=== PATIENT | female | born 1965 | race Caucasian/White ===

== ENCOUNTER → 2016-08-05 | Outpatient (CLI) | payer OTHER ==
[~2016-08-05] MED LIST: ALLEGRA30 MG PO; ASCORBIC ACID100 MG PO; Advair HFA 230/21; BRINTELLIX10 MG PO; BUSPAR15 MG PO; Benadryl PO; CALCIUM 500 MG1 EACH PO; CORTEF5 M1 PO; DULERA 200 MCG/13 GM; DULERA 200 MCG/13 GM IH; EFFEXOR XR150 MG PO; EFFEXOR XR75 MG PO; EFFEXOR25 MG PO; FLEXERIL10 MG PO; FLONASE16 G1 BOTH NARES; FLONASE16 G1 NS; HYOMAX-DT0.375 MG PO; LEVBID0.375 MG PO; LEVO-T50 MCG PO; LYRICA75 MG PO; MORPHINE SULFAT15 M1 PO; NEURONTIN100 MG PO; OMEPRAZOLE40 M1 PO; OXYCODONE-APAP1 EAC6 PO; PERCOCET 5/31 TABLET PO; PERCOCET 7.51 TABLE1 PO; PROVENTIL,2.5 MG/0.5 IH; PROVENTIL,200 INHALA IH; ROBINUL FORTE2 MG PO; STOMACH MEDICINE; SYMBICORT60 INHALAT IH; TRAZODONE HCL100 MG PO; TRAZODONE HCL150 MG PO; VITAMIN B-12250 MC2 PO; VITAMIN D315 ML PO; Valium PO; ZANTAC300 MG PO; ZYRTEC10 M2 PO; predniSONE PO
== END | disposition home or self-care (01) ==
LOC: NUC 10:47
DX: K82.8 Other specified diseases of gallbladder (principal); R14.3 Flatulence; R11.0 Nausea; R10.811 Right upper quadrant abdominal tenderness
CPT/HCPCS: 78227; A9537; J2270

== ENCOUNTER 2016-08-12 07:11 | Emergency (ER) | payer OTHER ==
[~2016-08-12] VITALS: Ht 154.9 cm; Wt 79.2 kg
[~2016-08-12 07:11] MED LIST changes: -ASCORBIC ACID100 MG PO; -BRINTELLIX10 MG PO; -CORTEF5 M1 PO; -LEVBID0.375 MG PO; -LEVO-T50 MCG PO; -OMEPRAZOLE40 M1 PO; -ROBINUL FORTE2 MG PO; -VITAMIN B-12250 MC2 PO; -VITAMIN D315 ML PO
[2016-08-12 07:53] LABS: ADD MIUA? YES; BILIRUBIN NEGATIVE; BLOOD SMALL; COLOR STRAW ((YELLOW)); GLUCOSE (STRIP) NEGATIVE; KETONES NEGATIVE; LEUKOCYTES SMALL; NITRITE NEGATIVE; PROTEIN (STRIP) NEGATIVE; SPECIFIC GRAVITY 1.003 (1.000-1.030); UROBILINOGEN 0.2 MG/DL (0.2-1.0)
[2016-08-12 07:55] LABS: EOSINOPHIL (%) 0.5 % (0-5); IMMATURE GRANULOCYTE (%) 0.3 % (0.0-0.7); INSTRUMENT ABS NEUTROPHIL CT 5.8 K/uL; LYMPHOCYTE COUNT 1.6 K/uL (1.0-2.8); MCHC 32.2 G/DL (30.0-36.0); MCV 90.1 FL (83-99); MEAN PLAT.VOLUME 10.1 uM^3 (9.5-12.4); MONOCYTE (%) 3.8 % (3-12); MONOCYTE COUNT 0.3 K/uL (0-0.8); NEUTROPHIL (%) 74.3 % (45-76); NEUTROPHIL COUNT 5.8 K/uL (1.8-6.4); PLATELET COUNT 259 K/uL (156-360); RBC DIS.WIDTH-CV 13.2 % (11.8-14.6); RBC DIS.WIDTH-SD 43.2 % (39-53); RED BLOOD COUNT 4.55 M/uL (3.80-5.20); WHITE BLOOD COUNT 7.9 K/uL (4.1-10.2)
[2016-08-12 08:04] LABS: BACTERIA RARE /HPF; EPITHELIAL CELLS RARE /HPF; MUCUS NONE SEEN /LPF; RED BLOOD CELLS 0-5 /HPF (0-5); WHITE BLOOD CELLS 0-5 /HPF (0-5)
[2016-08-12 08:06] LABS: CHLORIDE 107 mEq/L (99-109); POTASSIUM 3.7 mEq/L (3.7-5.4); SODIUM 140 mEq/L (136-147)
[2016-08-12 08:08] LABS: GLUCOSE 109 mg/dL (70-99)
[2016-08-12 08:10] LABS: ANION GAP 9 MEQ/L (2-14); TOTAL BILIRUBIN 0.3 mg/dL (0.0-1.0)
[2016-08-12 08:12] LABS: ALKALINE PHOSPHATASE 90 IU/L (3-129); GFR ESTIMATE (CALCULATED) > 59 mL/min/
[2016-08-12 08:13] LABS: UREA NITROGEN (BUN) 9 mg/dL (9-23)
[2016-08-12 08:16] LABS: LIPASE 24 U/L (1.0-51.0)
[2016-08-12] MEDS ORDERED: LEVBID0.375 MG PO (08:27)
[2016-08-12] MEDS ORDERED: CORTEF5 M1 PO (08:27)
[2016-08-12] MEDS ORDERED: LEVO-T50 MCG PO (08:28)
[2016-08-12] MEDS ORDERED: BRINTELLIX10 MG PO (08:28)
[2016-08-12] MEDS ORDERED: VITAMIN B-12250 MC2 PO (08:29)
[2016-08-12] MEDS ORDERED: ASCORBIC ACID100 MG PO (08:29)
[2016-08-12] MEDS ORDERED: ROBINUL FORTE2 MG PO (08:30)
[2016-08-12] MEDS ORDERED: VITAMIN D315 ML PO (08:30)
[2016-08-12] MEDS ORDERED: OMEPRAZOLE40 M1 PO (08:31)
[2016-08-12] MEDS ORDERED: DULERA 200 MCG/13 GM IH (08:31)
[2016-08-12] MEDS ORDERED: FLONASE16 G1 BOTH NARES (08:31)
[2016-08-12 09:52] VITALS: BP 132/94
== END 2016-08-12 09:53 | disposition home or self-care (01) ==
LOC: EME 07:11
PROVIDERS: Emergency Medicine
DX: R10.11 Right upper quadrant pain (principal); K21.9 Gastro-esophageal reflux disease without esophagitis; J45.909 Unspecified asthma, uncomplicated
CPT/HCPCS: 74176; 80053; 81003; 83690; 85025; 99281; 99285; J1885; J7030

== ENCOUNTER 2016-09-17 06:57 | Day surgery (SDC) | payer OTHER ==
[~2016-09-17] VITALS: Ht 154.9 cm; Wt 79.3 kg
[~2016-09-17 06:57] MED LIST changes: +ASCORBIC ACID100 MG PO; +BRINTELLIX10 MG PO; +CORTEF5 M1 PO; +DESYREL100 MG PO; +LEVBID0.375 MG PO; +LEVO-T50 MCG PO; +OMEPRAZOLE40 M1 PO; +ROBINUL FORTE2 MG PO; +VITAMIN B-12250 MC2 PO; +VITAMIN D315 ML PO
[2016-09-17 08:09] VITALS: BP 97/57
[2016-09-17 09:00] LABS: METH RESISTANT S AUREUS PCR NEGATIVE (NEGATIVE)
[2016-09-17 09:06] LABS: PROBE CHECK PASS; SPECIMEN PROCESSING CONTROL PASS
[2016-09-17] MEDS ORDERED: NORCO 5/3251 TABLET PO (09:48)
[2016-09-17 11:58] VITALS: BP 110/63
== END 2016-09-17 12:10 | disposition home or self-care (01) ==
LOC: SDC 06:57
PROVIDERS: Surgery
PROC: 0FT44ZZ Resection of Gallbladder, Percutaneous Endoscopic Approach (ICD-10-PCS; principal; 2016-09-17)
DX: K81.1 Chronic cholecystitis (principal); J45.909 Unspecified asthma, uncomplicated; K21.9 Gastro-esophageal reflux disease without esophagitis; E03.9 Hypothyroidism, unspecified; Z79.899 Other long term (current) drug therapy; Z88.0 Allergy status to penicillin
CPT/HCPCS: 87641; 88304; J0330; J0690; J1100; J1170; J1885; J2250; J2405; J2710; J3010

== ENCOUNTER 2016-10-29 12:27 | Day surgery (SDC) | payer OTHER ==
[~2016-10-29] VITALS: Ht 156.2 cm; Wt 79.4 kg
[~2016-10-29 12:27] MED LIST changes: +CYMBALTA60 MG PO; +NORCO 5/3251 TABLET PO
[2016-10-29] MEDS ORDERED: PERCOCET 5/31 TABLET PO (13:05)
== END 2016-10-29 13:58 | disposition home or self-care (01) ==
LOC: PAIN 12:27 → SDC 13:15 → PAIN 13:58
DX: M47.816 Spondylosis without myelopathy or radiculopathy, lumbar region (principal); M54.5 Low back pain; G89.29 Other chronic pain; M51.36 Other intervertebral disc degeneration, lumbar region; J45.909 Unspecified asthma, uncomplicated; E03.9 Hypothyroidism, unspecified; K21.9 Gastro-esophageal reflux disease without esophagitis; Z88.0 Allergy status to penicillin; F41.8 Other specified anxiety disorders; E66.3 Overweight; Z68.33 Body mass index [BMI] 33.0-33.9, adult; E55.9 Vitamin D deficiency, unspecified; Z79.891 Long term (current) use of opiate analgesic
CPT/HCPCS: J1030; J2250; J3010; S0020

== ENCOUNTER 2016-11-05 09:15 | Day surgery (SDC) | payer OTHER ==
[~2016-11-05] VITALS: Ht 156.2 cm; Wt 79.4 kg
== END 2016-11-05 11:01 | disposition home or self-care (01) ==
LOC: PAIN 09:15 → SDC 09:45 → PAIN 09:45
DX: M47.816 Spondylosis without myelopathy or radiculopathy, lumbar region (principal); M54.5 Low back pain; G89.29 Other chronic pain; M51.36 Other intervertebral disc degeneration, lumbar region; J45.909 Unspecified asthma, uncomplicated; E03.9 Hypothyroidism, unspecified; F41.8 Other specified anxiety disorders; E27.40 Unspecified adrenocortical insufficiency; E55.9 Vitamin D deficiency, unspecified; K21.9 Gastro-esophageal reflux disease without esophagitis; E66.3 Overweight; Z68.33 Body mass index [BMI] 33.0-33.9, adult; Z88.0 Allergy status to penicillin; Z79.891 Long term (current) use of opiate analgesic
CPT/HCPCS: J1030; J2250; J3010; S0020

== ENCOUNTER 2017-01-28 09:27 | Day surgery (SDC) | payer OTHER ==
[~2017-01-28] VITALS: Ht 156.2 cm; Wt 78.5 kg
== END 2017-01-28 11:30 | disposition home or self-care (01) ==
LOC: PAIN 09:27
DX: M53.3 Sacrococcygeal disorders, not elsewhere classified (principal); M46.1 Sacroiliitis, not elsewhere classified; G89.29 Other chronic pain; M54.5 Low back pain; M47.816 Spondylosis without myelopathy or radiculopathy, lumbar region; J45.909 Unspecified asthma, uncomplicated; E27.40 Unspecified adrenocortical insufficiency; M85.80 Other specified disorders of bone density and structure, unspecified site; K58.9 Irritable bowel syndrome, unspecified; F41.8 Other specified anxiety disorders; Z88.0 Allergy status to penicillin; E66.3 Overweight; Z68.32 Body mass index [BMI] 32.0-32.9, adult; E03.9 Hypothyroidism, unspecified; K21.9 Gastro-esophageal reflux disease without esophagitis
CPT/HCPCS: J1030; J2250; J3010; S0020

== ENCOUNTER 2017-07-03 10:35 | Day surgery (SDC) | payer OTHER ==
[~2017-07-03] VITALS: Ht 156.2 cm; Wt 80.7 kg
[~2017-07-03 10:35] MED LIST changes: +ALLEGRA ALLERG180 MG PO; -ASCORBIC ACID100 MG PO; +ASCORBIC ACID500 M3 PO; +BUSPAR30 MG PO; +CYANOCOBALAM1000 MCG PO; +LYRICA100 MG PO; -LYRICA75 MG PO; +PERCOCET 7.51 TABLET PO; +REQUIP2 MG PO; -ROBINUL FORTE2 MG PO; -VITAMIN B-12250 MC2 PO; -VITAMIN D315 ML PO; +VITAMIN D32000 UNI1 PO
== END 2017-07-03 11:55 | disposition home or self-care (01) ==
LOC: PAIN 10:35 → SDC 11:15 → PAIN 11:55
DX: M16.0 Bilateral primary osteoarthritis of hip (principal); G89.29 Other chronic pain; M47.816 Spondylosis without myelopathy or radiculopathy, lumbar region; M46.1 Sacroiliitis, not elsewhere classified; J45.909 Unspecified asthma, uncomplicated; F41.8 Other specified anxiety disorders; E03.9 Hypothyroidism, unspecified; K21.9 Gastro-esophageal reflux disease without esophagitis; Z88.0 Allergy status to penicillin; Z79.891 Long term (current) use of opiate analgesic
CPT/HCPCS: J1030; J2250; J3010; S0020